=== PATIENT | male | born 1985 | race Caucasian/White ===

== ENCOUNTER 2023-12-14 13:39 | Emergency (ER) | payer OTHER ==
[~2023-12-14] VITALS: Ht 175.3 cm; Wt 99.8 kg
[~2023-12-14 13:39] MED LIST: CIPR500 PO; COMMIT; CRUTCH4 USE; DOXY100T53 PO; HYDACE5325 PO; HYDR1TAB94 PO; NAPR500 PO; TRAM50 PO
[2023-12-14] MEDS ORDERED: Methadone HCL 10 MG TAB PO ONE (14:10)
== END 2023-12-14 14:45 | disposition home or self-care (01) ==
LOC: ER 13:39
DX: Z76.89 Persons encountering health services in other specified circumstances (principal); Z87.891 Personal history of nicotine dependence; Z59.89 Other problems related to housing and economic circumstances
CPT/HCPCS: 99281; A9270

== ENCOUNTER → 2024-01-12 | Outpatient (CLI) | payer OTHER ==
[2024-01-12 18:56] LABS: BASOPHILS ABSOLUTE AUTO 0.11 K/mm3 (0.00-0.23); BASOPHILS PERCENT AUTO 1 % (0-2); EOSINOPHILS ABSOLUTE AUTO 0.28 K/mm3 (0.00-0.68); EOSINOPHILS PERCENT AUTO 3 % (0-6); Hematocrit 47.6 % (37.0-53.0); Hemoglobin 15.9 g/dL (13.5-17.5); IMMATURE GRAN ABSOLUTE AUTO 0.02 K/mm3 (0.00-0.10); IMMATURE GRAN PERCENT AUTO 0 % (0-1); LYMPHOCYTES ABSOLUTE AUTO 2.94 K/mm3 (0.84-5.20); LYMPHOCYTES PERCENT AUTO 33 % (21-46); MONOCYTES ABSOLUTE AUTO 0.65 K/mm3 (0.16-1.47); MONOCYTES PERCENT AUTO 7 % (4-13); Mean Corpuscular HGB 28.1 pg (26.0-34.0); Mean Corpuscular HGB Conc 33.4 g/dL (31.5-36.5); Mean Corpuscular Volume 84 fL (80-100); Mean Platelet Volume 9.5 fL (9.1-12.4); NEUTROPHILS ABSOLUTE AUTO 5.04 K/mm3 (1.96-9.15); NEUTROPHILS PERCENT AUTO 56 % (41-73); Platelet Count 384 K/mm3 (150-400); RDW Coefficient Variation 13.2 % (11.7-14.2); RDW Standard Deviation 40.5 fL (35.1-46.3); Red Blood Cell Count 5.65 M/mm3 (4.30-5.90); White Blood Cell Count 9.04 K/mm3 (4.00-11.30)
[2024-01-12 19:08] LABS: Albumin, Blood 3.6 g/dL (3.4-5.0); Albumin/Globulin Ratio 0.8 (0.8-1.8); Bilirubin, Total 0.2 mg/dL (0.1-1.0); Creatinine, Blood 1.14 mg/dL (0.60-1.20); Globulin, Blood 4.3 g/dL (2.2-4.0); Potassium, Blood 4.4 mmol/L (3.5-5.5); Total Protein, Blood 7.9 g/dL (6.4-8.2)
== END | disposition home or self-care (01) ==
LOC: LAB 18:53 → LAB SHORT 18:53
PROVIDERS: Emergency Medicine
DX: R10.9 Unspecified abdominal pain (principal)
CPT/HCPCS: 80053; 85025